=== PATIENT | male | born 1960 | race Caucasian/White ===

== ENCOUNTER 2018-02-01 10:36 | Emergency (ER) | payer OTHER | END 2018-02-01 11:38 | disposition left against medical advice (07) | LOC: SCSER 10:36 | DX: R10.2 Pelvic and perineal pain (principal); G89.29 Other chronic pain; F17.210 Nicotine dependence, cigarettes, uncomplicated; Z79.891 Long term (current) use of opiate analgesic; Z87.442 Personal history of urinary calculi | CPT/HCPCS: 99283 ==